=== PATIENT | male | born 1935 | race Two or more races ===

== ENCOUNTER → 2017-06-11 | Outpatient (REF) | payer MEDICARE, OTHER | LOC: M SMT 17:09 | PROVIDERS: ATTEND Nurse Practitioner Family | DX: N40.0 Benign prostatic hyperplasia without lower urinary tract symptoms (principal) | CPT/HCPCS: 51702; 51798; 81001; 87086; G0463 ==

== ENCOUNTER → 2017-07-12 | Outpatient (REF) | payer MEDICARE, OTHER | LOC: M SMT 17:10 | PROVIDERS: ATTEND Urology | DX: R33.9 Retention of urine, unspecified (principal) ==